=== PATIENT | female | born 1970 | race Caucasian/White ===

== ENCOUNTER → 2020-05-19 | Day surgery (SDC) | payer OTHER ==
[2020-05-14 13:57] VITALS: BMI 28.2
[~2020-05-19] MED LIST: DEXAMETHASONE SOD PHOSPHATE 10 MG/ML 1 ML VIAL IV ONE; HYDROmorphone 0.5 MG/0.5 ML SYRINGE IVP PRN; LIDOCAINE 1% (10MG/ML) FOR IV START INTRADERMA PRN; LIDOCAINE 1% INJ 10MG/ML (20 ML MDV) ONE; MIDAZOLAM 2 MG/2 ML VIAL IV PRN; MIDAZOLAM 2 MG/2 ML VIAL ONE; ONDANSETRON 4 MG/2 ML VIAL IVP ONE; PROPOFOL 10 MG/ML 20 ML VIAL IV ONE; Pre Op ABX Message 1 EACH MISC MISCELLANE ONE; fentaNYL (PF) 50 MCG/ML 2 ML AMP IVP ONE; fentaNYL (PF) 50 MCG/ML 2 ML AMP ONE
[2020-05-19 10:31] VITALS: TEMP 97.6
[2020-05-19] MEDS: LACTATED RINGERS 1,000 ML IV SCH ×2 (10:37→11:04)
--- NOTE | 2020-05-19 11:25 | P.ANPRN ---
Procedure Note - Anesthesia - Nerve Block Performed Left Supraclavicular Single Time Out Performed: Yes Date of Procedure: 05/19/20 Procedure Start Time: 10:39 Procedure Stop Time: 10:50 Location of Patient: PreOp Indication: Requested by Surgeon Specifically requested for management of pain by DrDel: Wing Correa Sedation Type: Sedate with meaningful contact maintained Preparation: Sterile Prep Position: Supine Needle Types: Pajunk Needle Gauge: 21 Ultrasound used to visualize needle placement: Yes Ultrasound used to observe medication spread: Yes Injectate: 0.5% Ropivacaine (see comment for volume) (30 ml plus dexamethason 4 mg) Blood Aspirated: No Pain Paresthesia on Injection Noted: No Resistance on Injection: Normal Image Stored and Saved: Yes Events: Uneventful and Well Tolerated
[2020-05-19 12:01] VITALS: RESP 16
[2020-05-19 12:46] VITALS: BP 119/68; PULSE 80
--- NOTE | 2020-05-19 13:30 | OP ---
OPERATIVE REPORT DATE OF SURGERY: 05/19/2020. PREOPERATIVE DIAGNOSIS: Chronic triangular fibrocartilage ligament tendinitis, left wrist, possible tear. FINAL DIAGNOSES: 1. Central degenerative tear, triangular fibrocartilage ligament, left wrist. 2. Chronic synovitis. 3. Minor chondromalacia, lunate, grade 2. PROCEDURE PERFORMED: 1. Arthroscopy, left wrist. 2. Arthroscopic debridement of torn TFC ligament. 3. Arthroscopic synovectomy. 4. Arthroscopic chondroplasty of the lunate. INDICATIONS: 49-year-old woman who has had chronic ulnar-sided left wrist pain. MRI was negative for a tear, but her clinical exam suggested otherwise. GROSS PATHOLOGY: She indeed had a central degenerative tear of her triangular fibrocartilage of her left wrist. This was trimmed nicely to smooth edges. There were minor joint changes otherwise consisting of some mild lunate chondromalacia. Synovial response was moderate. PROCEDURE DETAILS: This 49-year-old woman was taken operative suite after an axillary block was given by Department of Anesthesia in the preop holding area. Her hand was prepped and draped in usual manner. It was then placed in overhead traction through the index and middle fingers with 10 pounds of countertraction. The tourniquet was then inflated. The scope was inserted in the 3/4 portal for visualization purposes. The probe was placed in the 4/5 portal and outflow through the 6R portal. The torn triangular fibrocartilage was noted and was trimmed with a shaver through the 4/5 portal. An arthroscopic synovectomy was performed in the same manner with the shaver. Also performed was a chondroplasty of the lunate. Exam of the midcarpal joint was unremarkable. There was normal joint findings. No signs of any erosion and both the scapholunate and lunotriquetral ligament spaces were tight suggesting no instability. The joint was thoroughly irrigated. The instruments were removed. Tourniquet was released. Hemostasis satisfactory. Soft bulky dressing was applied. Patient taken to recovery room in satisfactory condition. MMODL / IJN: [id number] /
== END ==
LOC: OR 10:13
PROVIDERS: ATTEND Orthopaedic Surgery Hand Surgery
DX: S63.592A Other specified sprain of left wrist, initial encounter (principal); X58.XXXA Exposure to other specified factors, initial encounter; M94.232 Chondromalacia, left wrist; E78.5 Hyperlipidemia, unspecified; K21.9 Gastro-esophageal reflux disease without esophagitis; F32.9 Major depressive disorder, single episode, unspecified; F41.9 Anxiety disorder, unspecified; R00.2 Palpitations; J44.9 Chronic obstructive pulmonary disease, unspecified; F17.200 Nicotine dependence, unspecified, uncomplicated; R63.5 Abnormal weight gain; Z90.710 Acquired absence of both cervix and uterus; R06.02 Shortness of breath; Z98.890 Other specified postprocedural states; Z82.49 Family history of ischemic heart disease and other diseases of the circulatory system; Z79.899 Other long term (current) drug therapy; Z88.2 Allergy status to sulfonamides
CPT/HCPCS: 64415; 76942; 29846; J2250; J1100; J2405; J2001; J3010; J2704

== ENCOUNTER 2021-01-23 11:06 | Day surgery (SDC) | payer OTHER ==
[2021-01-21 11:42] VITALS: BMI 29.7
[~2021-01-23 11:06] MED LIST changes: -DEXAMETHASONE SOD PHOSPHATE 10 MG/ML 1 ML VIAL IV ONE; +DEXAMETHASONE SOD PHOSPHATE 4 MG/ML 1 ML VIAL IV ONE; +LACTATED RINGERS 1,000 ML IV SCH; -LIDOCAINE 1% (10MG/ML) FOR IV START INTRADERMA PRN; -LIDOCAINE 1% INJ 10MG/ML (20 ML MDV) ONE; -MIDAZOLAM 2 MG/2 ML VIAL ONE; -PROPOFOL 10 MG/ML 20 ML VIAL IV ONE; +SCOPOLAMINE 1.5MG/72HR PATCH TRANSDERM ONE; -fentaNYL (PF) 50 MCG/ML 2 ML AMP IVP ONE; -fentaNYL (PF) 50 MCG/ML 2 ML AMP ONE
[2021-01-23] MEDS ORDERED: ePHEDrine SULFATE/0.9% NACL/PF 50 MG/5 ML SYRINGE IV ONE (11:58)
[2021-01-23] MEDS ORDERED: MIDAZOLAM 2 MG/2 ML VIAL ONE (11:58)
[2021-01-23] MEDS ORDERED: SUCCINYLCHOLINE CHLORIDE 100 MG/5 ML SYR IV ONE (11:58)
[2021-01-23] MEDS ORDERED: ROCURONIUM 10 MG/ML (5 ML VIAL) IV ONE (11:58)
[2021-01-23] MEDS ORDERED: LIDOCAINE 1% INJ 10MG/ML (20 ML MDV) ONE (11:58)
[2021-01-23] MEDS ORDERED: NEOSTIGMINE 1 MG/ML 10 ML VIAL ONE (11:58)
[2021-01-23] MEDS ORDERED: GLYCOPYRROLATE 0.2 MG/ML 2 ML VIAL ONE (11:58)
[2021-01-23] MEDS ORDERED: PROPOFOL 10 MG/ML 20 ML VIAL IV ONE (11:58)
[2021-01-23] MEDS ORDERED: ALBUTEROL HFA INHALER INHALATION ONE (11:58)
[2021-01-23] MEDS ORDERED: fentaNYL (PF) 50 MCG/ML 2 ML AMP ONE (11:58)
--- NOTE | 2021-01-23 12:35 | P.OP ---
Date of Procedure: 01/23/21 Procedure(s) Performed: in situ cubital tunnel release no complications Leigha garcia 2 cc PREOPERATIVE DIAGNOSES: 1. Left elbow cubital tunnel syndrome POSTOPERATIVE DIAGNOSES: 1. Left elbow cubital tunnel syndrome PROCEDURES PERFORMED: 1. Left elbow in-situ decompression of ulnar nerve at cubital tunnel ANESTHESIA: entry level assistant manager: None COMPLICATIONS: None ESTIMATED BLOOD LOSS: Less than 10 cc TOURNIQUET: 20 minutes DISPOSITION: To post-anesthesia care unit INDICATIONS: [] with a history of left cubital tunnel syndrome which has been confirmed with EMG/NCS testing. There has been signs and symptoms consistent with the diagnosis and mild motor involvement. The patient has not benefitted significantly from conservative treatment with immobilization and night bracing. I have discussed the option of cubital tunnel release. I have explained the details of this surgery thoroughly and also explained the potential risks and complications. These are inclusive of, but not limited to: bleeding, infection, scarring, discomfort, blood vessel and nerve damage, stiffness, weakness, need for further surgery, failure to relieve symptoms, persistence or worsening of problems, , and other risks. The patient agrees to proceed with surgery. The consent form has been signed. PROCEDURE: After appropriate consent was obtained, the patient was taken to the operating room and placed in the supine position. Sedation was initiated and prepping and draping were performed in the usual aseptic fashion with Hibiclens. A pneumotourniquet was used for the case. Time-out was called according to [facility] standards, confirming patient identity, side, procedure, and no antibiotics were administered, per protocol. Tourniquet was inflated after exsanguination of the left upper limb. Incision was created on the ulnar posterior aspect of the elbow, between the medial epicondyle and the olecranon. The incision length was approximately 7 cm. The incision was carried down through subcutaneous tissue using a diss ecting scissor. Care was taken to identify and protect any visualized branches of the medial antebrachial cutaneous nerve. Hemostasis was maintained throughout the case using electrocautery. Dissection proceeded down to the ulnar nerve proximal to the medial epicondyle. The nerve was clearly identified and then followed into the cubital tunnel. The retinaculum of the cubital tunnel (Osbornes ligament) was divided sharply with a knife, proximal to distal. Compression of the nerve was noted in this location, with an hourglass shaped area of the ulnar nerve around the ligament. The fascia between the two heads of the flexor carpi ulnaris muscle was then incised under direct visualization. The motor branch of the ulnar nerve to the FCU was identified and protected. Final distal release of the flexor-pronator aponeurosis was performed using fine Metzenbaum scissors. Post release, subluxation of the nerve was assessed by flexing and extending the elbow with evaluation of whether the nerve subluxed out of the groove. This maneuver was also performed with various degrees of pronation and supination. The nerve remained stable and no subluxation was observed. Area was thoroughly irrigated with normal saline. Tourniquet was deflated and hemostasis was obtained using electrocautery. Closure using 3-0 Vicryl sutures in the subcutaneous tissue followed by 4-0 Monocryl running subcuticular stitch for the skin was performed. Steri-Strips were applied. Sterile dressing was applied and light compressive dressing using webril and SANDRO wrap. Pressure was held for 3 minutes over the incision site for additional hemostasis. Arm sling was applied. Patient tolerated the procedure well and taken to recovery room in stable condition. Sponge and needle counts were correct.
[2021-01-23 12:59] VITALS: TEMP 98.2
[2021-01-23 13:11] VITALS: RESP 16
[2021-01-23 13:55] VITALS: BP 111/72; PULSE 81
== END 2021-01-23 14:05 | disposition home or self-care (01) ==
LOC: OR 11:06
PROVIDERS: ATTEND Orthopaedic Surgery
DX: G56.22 Lesion of ulnar nerve, left upper limb (principal); J44.9 Chronic obstructive pulmonary disease, unspecified; K21.9 Gastro-esophageal reflux disease without esophagitis; K51.90 Ulcerative colitis, unspecified, without complications; Z88.2 Allergy status to sulfonamides; Z79.899 Other long term (current) drug therapy
CPT/HCPCS: 64718; J2250; J1100; J2710; J2405; J2001; J3010; J0330; J2704